=== PATIENT | female | born 1995 | race African-American/Black ===

== ENCOUNTER 2019-04-05 10:04 | Emergency (ER) | payer BC ==
[~2019-04-05] VITALS: Ht 152.4 cm; Wt 81.6 kg
[2019-04-05 10:10] VITALS: BP 131/58
[2019-04-05] MEDS ORDERED: METH4TAB2 PO (10:27)
[2019-04-05] MEDS ORDERED: AZIT250T6 PO (10:27)
--- NOTE | 2019-04-05 10:27 | PHYS DOC ---
Adult General Chief Complaint Chief Complaint: SORE THROAT HPI HPI Patient is a 23 year old female who presents with sore throat and cough 1 week. Patient also has nasal congestion. Patient states she's been taking Mucinex is no longer helping. Patient denies fever or pain. Review of Systems Review of Systems HENT: nasal congestion or sore throat [] Respiratory: cough or denies shortness of breath [] All other systems were reviewed and found to be within normal limits, except as documented in this note. Physical Exam Physical Exam Constitutional: Well developed, well nourished, no acute distress, non-toxic appearance. [] HENT: Normocephalic, atraumatic, bilateral external ears normal, oropharynx moist, no oral exudates, nose normal. [] Eyes: PERRLA, EOMI, conjunctiva normal, no discharge. [] Neck: Normal range of motion, no tenderness, supple, no stridor. [] Cardiovascular:Heart rate regular rhythm, no murmur [] Lungs & Thorax: Bilateral breath sounds clear to auscultation [] Skin: Warm, dry, no erythema, no rash. [] Neurologic: Alert and oriented X 3, normal motor function, normal sensory function, no focal deficits noted. [] Psychologic: Affect normal, judgement normal, mood normal. Normal physical exam[] EKG EKG [] Radiology/Procedures Radiology/Procedures [] Course & Med Decision Making Course & Med Decision Making Post nasal drip seen at the back of the throat. Patient denies ear pain, nausea, vomiting, diarrhea, fever, abdominal pain, dizziness, headache. Lungs are clear to auscultation all lobes. Throat is pink without swelling or exudates. Bilateral tympanic syrup pearly white. Speaks in full clear senses. Ambulatory with a steady gait. Skin is pink warm and dry. Patient is to follow up with primary care provider as needed and I will give her a antibiotic. Leah Disclaimer Leah Disclaimer This electronic medical record was generated, in whole or in part, using a voice recognition dictation system. Departure Departure Impression: Primary Impression: Cough Additional Impression: Nasal congestion Disposition: 01 HOME, SELF-CARE Condition: STABLE Patient Instructions: Cough, Child Additional Instructions: Follow up with primary care provider. Take medications as prescribed. Scripts Azithromycin (AZITHROMYCIN TABLET) 250 Mg Tablet 1 PKG PO UD for 5 Days, #6 TAB 0 Refills 2 the first day followed by 1 for days 2-5 Prov: ANGELA XIE APRN 04/05/19 Methylprednisolone (MEDROL) 4 Mg Tab.ds.pk 1 PKG PO UD, #1 PKG Prov: ANGELA XIE APRN 04/05/19 Problem Qualifiers ANGELA XIE APRN Apr 05, 2019 10:27
== END 2019-04-05 10:30 | disposition home or self-care (01) ==
LOC: ER 10:04
DX: R05 Cough (principal); R09.81 Nasal congestion; J02.9 Acute pharyngitis, unspecified
CPT/HCPCS: 99283